=== PATIENT | male | born 1970 | race Caucasian/White ===

== ENCOUNTER → 2016-09-23 | Outpatient (CLI) | payer OTHER, MEDICAID | END | disposition home or self-care (01) | LOC: RD 09:25 | DX: Z00.00 Encounter for general adult medical examination without abnormal findings (principal) ==

== ENCOUNTER 2017-09-01 11:21 | Inpatient (IN) | payer OTHER, MEDICAID ==
[~2017-09-01] VITALS: Ht 160 cm; Wt 61.1 kg
[2017-09-01 12:39] LABS: BASOPHIL % 0.1 % (0-2); PLATELET COUNT 252 x10^3mcL (130-400); RED CELL DISTRIBUTION WIDTH 13.6 % (11.5-14.5)
[2017-09-01 13:06] LABS: CALCIUM 8.4 mg/dL (8.5-10.1); CARBON DIOXIDE 28.6 mmol/L (21-32); CHLORIDE SERUM 98 mmol/L (98-107); CREATININE SERUM 0.8 mg/dL (0.7-1.3); GFR1 > 60 mL/min; GLUCOSE SERUM 120 mg/dL (74-106); POTASSIUM SERUM 3.2 mmol/L (3.5-5.1); SODIUM SERUM 139 mmol/L (136-145)
[2017-09-01 13:10] LABS: ALKALINE PHOSPHATASE 80 U/L (46-116); ALT/SGPT 45 U/L (16-63); AST/SGOT 50 U/L (15-37); BILIRUBIN TOTAL 0.85 mg/dL (0.20-1.00); LIPASE 78 IU/L (73-393); TOTAL PROTEIN, SERUM 6.7 g/dL (6.4-8.2)
[2017-09-01 13:12] LABS: ALBUMIN 2.4 g/dL (3.4-5.0)
[2017-09-01] MEDS ORDERED: CLARITIN10 MG PO (13:24)
[2017-09-01] MEDS ORDERED: BENZTROPINE ME0.5 MG PO (13:24)
[2017-09-01] MEDS ORDERED: DEPAKOTE ER500 MG PO ×2 (13:25)
[2017-09-01] MEDS ORDERED: LACTULOSE10 GM/152 PO (13:26)
[2017-09-01] MEDS ORDERED: COLACE100 MG (13:27)
[2017-09-01] MEDS ORDERED: PAROXETINE HCL40 M1 PO (13:27)
[2017-09-01] MEDS ORDERED: ACE (13:28)
[2017-09-01] MEDS ORDERED: APAP500 MG PO (13:29)
[2017-09-01] MEDS ORDERED: MOM PO (13:31)
[2017-09-01 14:30] LABS: UA SPECIFIC GRAVITY >=1.030 (1.005-1.035); microscopic required? YES; urine erythrocyte TRACE (NEGATIVE)
[2017-09-01 14:47] LABS: T3 TOTAL 0.68 ng/mL
[2017-09-01 15:01] LABS: MAGNESIUM 2.2 mg/dL (1.8-2.4); PHOSPHOROUS 4.2 mg/dL (2.5-4.9)
[2017-09-01 15:06] VITALS: BP 126/91
[2017-09-01 15:26] VITALS: Ht 160 cm; Wt 61.1 kg
[2017-09-01 15:31] LABS: AMPHETAMINE QUAL UR NONE DETECTED (NEG <=1000)
[2017-09-01 15:47] LABS: FREE T4 1.42 ng/dL (0.76-1.46); FREE THYROXINE INDEX 2.9 ug/dL (1.4-4.5); T4(THYROXINE) 7.9 ug/dL (4.7-13.3)
[2017-09-01 20:22] VITALS: BP 126/88
[2017-09-01 20:44] VITALS: BP 123/88
[2017-09-01 21:19] VITALS: BP 128/80
[2017-09-01 22:36] VITALS: BP 131/80
[2017-09-02] VITALS (10 sets, daily range): BP systolic 92–131; BP diastolic 56–81
[2017-09-02 06:16] LABS: BASOPHIL % 0.2 % (0-2); PLATELET COUNT 219 x10^3mcL (130-400); RED CELL DISTRIBUTION WIDTH 13.8 % (11.5-14.5)
[2017-09-02 06:30] LABS: CALCIUM 7.7 mg/dL (8.5-10.1); CARBON DIOXIDE 27.3 mmol/L (21-32); CHLORIDE SERUM 104 mmol/L (98-107); CREATININE SERUM 0.6 mg/dL (0.7-1.3); GFR1 > 60 mL/min; GLUCOSE SERUM 82 mg/dL (74-106); MAGNESIUM 2.1 mg/dL (1.8-2.4); PHOSPHOROUS 2.9 mg/dL (2.5-4.9); POTASSIUM SERUM 3.5 mmol/L (3.5-5.1); SODIUM SERUM 140 mmol/L (136-145); TRIGLYCERIDES 48 mg/dL (<150)
[2017-09-02 06:50] LABS: CHOLESTEROL 82 mg/dL (<200); CHOLESTEROL/HDL RATIO 2.7; HDL CHOLESTEROL 30 mg/dL (40-60)
[2017-09-03] VITALS (17 sets, daily range): BP systolic 92–151; BP diastolic 46–573
[2017-09-03 04:36] LABS: BASOPHIL % 0.2 % (0-2); PLATELET COUNT 239 x10^3mcL (130-400); RED CELL DISTRIBUTION WIDTH 14.2 % (11.5-14.5)
[2017-09-03 04:45] LABS: CALCIUM 7.2 mg/dL (8.5-10.1); CARBON DIOXIDE 28.1 mmol/L (21-32); CHLORIDE SERUM 108 mmol/L (98-107); CREATININE SERUM 0.7 mg/dL (0.7-1.3); GFR1 > 60 mL/min; GLUCOSE SERUM 194 mg/dL (74-106); PHOSPHOROUS 2.9 mg/dL (2.5-4.9); POTASSIUM SERUM 4.3 mmol/L (3.5-5.1); SODIUM SERUM 140 mmol/L (136-145)
[2017-09-04] VITALS (10 sets, daily range): BP systolic 91–124; BP diastolic 55–83
[2017-09-04 05:31] LABS: PLATELET COUNT 235 x10^3mcL (130-400); RED CELL DISTRIBUTION WIDTH 14.1 % (11.5-14.5)
[2017-09-04 05:45] LABS: CALCIUM 7.3 mg/dL (8.5-10.1); CARBON DIOXIDE 35.4 mmol/L (21-32); CHLORIDE SERUM 107 mmol/L (98-107); CREATININE SERUM 0.4 mg/dL (0.7-1.3); GFR1 > 60 mL/min; GLUCOSE SERUM 120 mg/dL (74-106); PHOSPHOROUS 2.9 mg/dL (2.5-4.9); POTASSIUM SERUM 3.9 mmol/L (3.5-5.1); SODIUM SERUM 142 mmol/L (136-145)
[2017-09-04 05:46] LABS: BAND NEUTROPHIL 4 % (0-10); METAMYELOCTE 1 % (0-2); MONOCYTE 9 % (0-7); MYELOCYTE 1 % (0-2); SEGMENTED NEUTROPHILS 72 % (37-75)
[2017-09-04 05:47] LABS: PLATELET MORPHOLOGY PLATELETS NORMAL
[2017-09-04 05:48] LABS: rbc morphology (normal/abnorm) NORMAL (NORMAL)
[2017-09-05 03:42] VITALS: BP 100/55
[2017-09-05 05:20] LABS: BASOPHIL % 0.4 % (0-2); PLATELET COUNT 236 x10^3mcL (130-400); RED CELL DISTRIBUTION WIDTH 14.1 % (11.5-14.5)
[2017-09-05 05:35] LABS: CALCIUM 7.3 mg/dL (8.5-10.1); CARBON DIOXIDE 32.9 mmol/L (21-32); CHLORIDE SERUM 106 mmol/L (98-107); CREATININE SERUM 0.4 mg/dL (0.7-1.3); GFR1 > 60 mL/min; GLUCOSE SERUM 109 mg/dL (74-106); MAGNESIUM 2.1 mg/dL (1.8-2.4); POTASSIUM SERUM 3.7 mmol/L (3.5-5.1); SODIUM SERUM 143 mmol/L (136-145)
[2017-09-05 08:30] VITALS: BP 112/51
[2017-09-05 12:35] VITALS: BP 106/56
[2017-09-05 19:35] VITALS: BP 112/67
[2017-09-05 20:56] VITALS: BP 112/67
[2017-09-06 05:35] VITALS: BP 115/61
[2017-09-06 07:43] LABS: BASOPHIL % 0.2 % (0-2); PLATELET COUNT 277 x10^3mcL (130-400)
[2017-09-06 07:50] LABS: CALCIUM 7.2 mg/dL (8.5-10.1); CARBON DIOXIDE 29.1 mmol/L (21-32); CHLORIDE SERUM 106 mmol/L (98-107); CREATININE SERUM 0.4 mg/dL (0.7-1.3); GFR1 > 60 mL/min; GLUCOSE SERUM 112 mg/dL (74-106); PHOSPHOROUS 3.9 mg/dL (2.5-4.9); POTASSIUM SERUM 4.1 mmol/L (3.5-5.1); SODIUM SERUM 139 mmol/L (136-145)
[2017-09-06 10:27] VITALS: BP 107/64
[2017-09-06 13:45] VITALS: BP 115/65
[2017-09-06 20:28] VITALS: BP 106/65
[2017-09-07 04:48] VITALS: BP 104/57
[2017-09-07 07:00] LABS: BASOPHIL % 0.3 % (0-2); PLATELET COUNT 286 x10^3mcL (130-400); RED CELL DISTRIBUTION WIDTH 13.9 % (11.5-14.5)
[2017-09-07 07:06] LABS: CALCIUM 7.2 mg/dL (8.5-10.1); CHLORIDE SERUM 101 mmol/L (98-107); CREATININE SERUM 0.4 mg/dL (0.7-1.3); GFR1 > 60 mL/min; GLUCOSE SERUM 217 mg/dL (74-106); PHOSPHOROUS 4.2 mg/dL (2.5-4.9); POTASSIUM SERUM 4.2 mmol/L (3.5-5.1); SODIUM SERUM 133 mmol/L (136-145)
[2017-09-07 09:45] VITALS: BP 106/67
[2017-09-07 14:50] VITALS: BP 130/79
[2017-09-07 19:44] VITALS: BP 125/90
[2017-09-07 23:36] VITALS: BP 132/81
[2017-09-08 01:08] LABS: BASOPHIL % 0.2 % (0-2); PLATELET COUNT 394 x10^3mcL (130-400); RED CELL DISTRIBUTION WIDTH 13.5 % (11.5-14.5)
[2017-09-08 03:54] VITALS: BP 105/73
[2017-09-08 05:49] LABS: BASOPHIL % 0.2 % (0-2); PLATELET COUNT 396 x10^3mcL (130-400); RED CELL DISTRIBUTION WIDTH 14.1 % (11.5-14.5)
[2017-09-08 05:51] LABS: CARBON DIOXIDE 28.1 mmol/L (21-32); CHLORIDE SERUM 104 mmol/L (98-107); CREATININE SERUM 0.4 mg/dL (0.7-1.3); GFR1 > 60 mL/min; GLUCOSE SERUM 148 mg/dL (74-106); POTASSIUM SERUM 3.7 mmol/L (3.5-5.1); SODIUM SERUM 136 mmol/L (136-145)
[2017-09-08 05:52] LABS: CALCIUM 7.1 mg/dL (8.5-10.1); MAGNESIUM 1.8 mg/dL (1.8-2.4); PHOSPHOROUS 3.7 mg/dL (2.5-4.9)
[2017-09-08 08:00] VITALS: BP 107/71
[2017-09-08 11:42] VITALS: BP 117/71
[2017-09-08 15:23] VITALS: BP 118/77
[2017-09-08 19:45] VITALS: BP 115/69
[2017-09-08 23:59] VITALS: BP 120/71
[2017-09-09 05:22] VITALS: BP 122/68
[2017-09-09 06:54] LABS: BASOPHIL % 0.3 % (0-2); PLATELET COUNT 375 x10^3mcL (130-400); RED CELL DISTRIBUTION WIDTH 13.8 % (11.5-14.5)
[2017-09-09 07:11] LABS: CALCIUM 7.3 mg/dL (8.5-10.1); CARBON DIOXIDE 26.2 mmol/L (21-32); CHLORIDE SERUM 102 mmol/L (98-107); CREATININE SERUM 0.4 mg/dL (0.7-1.3); GFR1 > 60 mL/min; GLUCOSE SERUM 108 mg/dL (74-106); MAGNESIUM 1.8 mg/dL (1.8-2.4); PHOSPHOROUS 2.9 mg/dL (2.5-4.9); POTASSIUM SERUM 4.2 mmol/L (3.5-5.1); SODIUM SERUM 133 mmol/L (136-145)
[2017-09-09 09:23] VITALS: BP 101/57
[2017-09-09 12:58] VITALS: BP 112/69
[2017-09-09 19:00] VITALS: BP 124/72
[2017-09-09 21:30] VITALS: BP 99/74
[2017-09-10 05:34] VITALS: BP 141/77
[2017-09-10 06:57] LABS: BASOPHIL % 0.7 % (0-2); PLATELET COUNT 399 x10^3mcL (130-400); RED CELL DISTRIBUTION WIDTH 14.2 % (11.5-14.5)
[2017-09-10 07:10] LABS: CALCIUM 7.4 mg/dL (8.5-10.1); CARBON DIOXIDE 28.2 mmol/L (21-32); CHLORIDE SERUM 102 mmol/L (98-107); CREATININE SERUM 0.4 mg/dL (0.7-1.3); GFR1 > 60 mL/min; GLUCOSE SERUM 139 mg/dL (74-106); MAGNESIUM 1.9 mg/dL (1.8-2.4); PHOSPHOROUS 3.9 mg/dL (2.5-4.9); POTASSIUM SERUM 4.2 mmol/L (3.5-5.1); SODIUM SERUM 136 mmol/L (136-145)
[2017-09-10 09:55] VITALS: BP 116/73
[2017-09-10 12:23] VITALS: BP 102/67
[2017-09-10 17:25] VITALS: BP 123/83
[2017-09-10 20:01] VITALS: BP 110/73
[2017-09-11 05:41] VITALS: BP 108/72
[2017-09-11 07:10] LABS: CALCIUM 7.4 mg/dL (8.5-10.1); CARBON DIOXIDE 26.4 mmol/L (21-32); CHLORIDE SERUM 102 mmol/L (98-107); CREATININE SERUM 0.4 mg/dL (0.7-1.3); GFR1 > 60 mL/min; GLUCOSE SERUM 94 mg/dL (74-106); MAGNESIUM 1.9 mg/dL (1.8-2.4); PHOSPHOROUS 3.6 mg/dL (2.5-4.9); POTASSIUM SERUM 4.2 mmol/L (3.5-5.1); SODIUM SERUM 136 mmol/L (136-145)
[2017-09-11 07:33] LABS: BASOPHIL % 0.2 % (0-2); PLATELET COUNT 421 x10^3mcL (130-400)
[2017-09-11 09:35] VITALS: BP 124/74
[2017-09-11 12:53] VITALS: BP 111/76
[2017-09-11 16:47] VITALS: BP 103/61
[2017-09-11 19:30] VITALS: BP 102/62
[2017-09-12] VITALS (7 sets, daily range): BP systolic 91–158; BP diastolic 60–81
[2017-09-12 06:51] LABS: CALCIUM 7.4 mg/dL (8.5-10.1); CARBON DIOXIDE 23.4 mmol/L (21-32); CHLORIDE SERUM 102 mmol/L (98-107); CREATININE SERUM 0.5 mg/dL (0.7-1.3); GFR1 > 60 mL/min; GLUCOSE SERUM 95 mg/dL (74-106); MAGNESIUM 1.8 mg/dL (1.8-2.4); PHOSPHOROUS 3.6 mg/dL (2.5-4.9); POTASSIUM SERUM 3.9 mmol/L (3.5-5.1); SODIUM SERUM 134 mmol/L (136-145)
[2017-09-12 06:58] LABS: BASOPHIL % 0.2 % (0-2); RED CELL DISTRIBUTION WIDTH 14.1 % (11.5-14.5)
[2017-09-12 07:18] LABS: PLATELET COUNT 411 x10^3mcL (130-400)
[2017-09-13 06:09] VITALS: BP 118/75
[2017-09-13 06:41] LABS: BASOPHIL % 0.8 % (0-2); RED CELL DISTRIBUTION WIDTH 14.1 % (11.5-14.5)
[2017-09-13 06:53] LABS: CALCIUM 7.4 mg/dL (8.5-10.1); CARBON DIOXIDE 24.9 mmol/L (21-32); CHLORIDE SERUM 100 mmol/L (98-107); CREATININE SERUM 0.4 mg/dL (0.7-1.3); GFR1 > 60 mL/min; GLUCOSE SERUM 91 mg/dL (74-106); POTASSIUM SERUM 3.7 mmol/L (3.5-5.1); SODIUM SERUM 133 mmol/L (136-145)
[2017-09-13 06:59] LABS: PLATELET COUNT 415 x10^3mcL (130-400)
[2017-09-13 09:44] VITALS: BP 106/75
[2017-09-13 13:42] VITALS: BP 117/74
[2017-09-13 16:31] VITALS: BP 132/75
[2017-09-13 20:26] VITALS: BP 114/72
[2017-09-14 06:10] LABS: BASOPHIL % 0.2 % (0-2); RED CELL DISTRIBUTION WIDTH 14.2 % (11.5-14.5)
[2017-09-14 06:17] VITALS: BP 110/73
[2017-09-14 06:30] LABS: CALCIUM 7.7 mg/dL (8.5-10.1); CARBON DIOXIDE 27.5 mmol/L (21-32); CHLORIDE SERUM 103 mmol/L (98-107); CREATININE SERUM 0.4 mg/dL (0.7-1.3); GFR1 > 60 mL/min; GLUCOSE SERUM 87 mg/dL (74-106); POTASSIUM SERUM 3.7 mmol/L (3.5-5.1); SODIUM SERUM 137 mmol/L (136-145)
[2017-09-14 06:59] LABS: PLATELET COUNT 431 x10^3mcL (130-400)
[2017-09-14 08:00] VITALS: BP 107/63
[2017-09-14 13:38] VITALS: BP 109/68
[2017-09-14 17:01] VITALS: BP 112/71
[2017-09-14 20:46] VITALS: BP 112/71
[2017-09-14 21:10] VITALS: BP 98/60
[2017-09-15 05:41] VITALS: BP 108/65
[2017-09-15 06:47] LABS: CALCIUM 7.7 mg/dL (8.5-10.1); CARBON DIOXIDE 26.8 mmol/L (21-32); CHLORIDE SERUM 103 mmol/L (98-107); CREATININE SERUM 0.4 mg/dL (0.7-1.3); GFR1 > 60 mL/min; GLUCOSE SERUM 104 mg/dL (74-106); PHOSPHOROUS 3.4 mg/dL (2.5-4.9); SODIUM SERUM 135 mmol/L (136-145)
[2017-09-15 06:56] LABS: BASOPHIL % 0.6 % (0-2); PLATELET COUNT 388 x10^3mcL (130-400); RED CELL DISTRIBUTION WIDTH 13.5 % (11.5-14.5)
[2017-09-15 09:16] VITALS: BP 101/61
[2017-09-15 14:24] VITALS: BP 125/79
[2017-09-15 17:36] VITALS: BP 124/80
[2017-09-15 22:34] VITALS: BP 119/71
[2017-09-16 05:24] VITALS: BP 116/70
[2017-09-16 06:31] LABS: CALCIUM 7.5 mg/dL (8.5-10.1); CARBON DIOXIDE 26.5 mmol/L (21-32); CHLORIDE SERUM 104 mmol/L (98-107); CREATININE SERUM 0.4 mg/dL (0.7-1.3); GFR1 > 60 mL/min; GLUCOSE SERUM 85 mg/dL (74-106); MAGNESIUM 1.9 mg/dL (1.8-2.4); PHOSPHOROUS 3.5 mg/dL (2.5-4.9); POTASSIUM SERUM 3.7 mmol/L (3.5-5.1); SODIUM SERUM 135 mmol/L (136-145)
[2017-09-16 06:44] LABS: IRON 21 ug/dL (65-170); TOTAL IRON BINDING CAPACITY 129 ug/dL (250-450)
[2017-09-16 08:07] LABS: BASOPHIL % 0.5 % (0-2); PLATELET COUNT 490 x10^3mcL (130-400); RED BLOOD CELLS 2.63 M/mm3 (4.52-5.90); RED CELL DISTRIBUTION WIDTH 14.1 % (11.5-14.5)
[2017-09-16 09:55] VITALS: BP 129/87
[2017-09-16 13:30] VITALS: BP 125/74
[2017-09-16 17:11] VITALS: BP 125/74
[2017-09-16 17:25] VITALS: BP 111/73
== END 2017-09-16 19:45 | DRG 326 ==
LOC: ED 11:21 → IC 12:41 → MU 12:41 → DU 12:41 → IC 09-02 10:33 → DU 09-05 15:52 → MU 09-06 11:05 → IC 09-07 19:11 → DU 09-08 23:38
PROVIDERS: Emergency Medicine; Family Medicine; Student in an Organized Health Care Education/Training Program; Surgery
PROC: 0DC Gastrointestinal System, Extirpation (ICD-10-PCS; 2017-09-01)
PROC: 0DTF0ZZ Resection of Right Large Intestine, Open Approach (ICD-10-PCS; 2017-09-02)
PROC: 0DC80ZZ Extirpation of Matter from Small Intestine, Open Approach (ICD-10-PCS; 2017-09-02)
PROC: 0DTP0ZZ Resection of Rectum, Open Approach (ICD-10-PCS; 2017-09-02)
PROC: 0DTN0ZZ Resection of Sigmoid Colon, Open Approach (ICD-10-PCS; 2017-09-02)
PROC: 0D1A0Z4 Bypass Jejunum to Cutaneous, Open Approach (ICD-10-PCS; 2017-09-02)
PROC: B543ZZA Ultrasonography of Right Jugular Veins, Guidance (ICD-10-PCS; 2017-09-03)
PROC: 05HM33Z Insertion of Infusion Device into Right Internal Jugular Vein, Percutaneous Approach (ICD-10-PCS; 2017-09-03)
PROC: 0DBB0ZZ Excision of Ileum, Open Approach (ICD-10-PCS; 2017-09-07)
PROC: 0D1B0Z4 Bypass Ileum to Cutaneous, Open Approach (ICD-10-PCS; 2017-09-07)
PROC: 0DH60UZ Insertion of Feeding Device into Stomach, Open Approach (ICD-10-PCS; principal; 2017-09-07 15:30)
DX: K56.2 Volvulus (principal); E43 Unspecified severe protein-calorie malnutrition; N17.0 Acute kidney failure with tubular necrosis; J96.01 Acute respiratory failure with hypoxia; K59.2 Neurogenic bowel, not elsewhere classified; I47.1 Supraventricular tachycardia; E87.1 Hypo-osmolality and hyponatremia; D68.8 Other specified coagulation defects; J98.11 Atelectasis; K59.39 Other megacolon; Q43.8 Other specified congenital malformations of intestine; R64 Cachexia; G80.9 Cerebral palsy, unspecified; K56.41 Fecal impaction; K56.0 Paralytic ileus; K21.9 Gastro-esophageal reflux disease without esophagitis; E87.6 Hypokalemia; F79 Unspecified intellectual disabilities; D64.9 Anemia, unspecified; I10 Essential (primary) hypertension; E86.0 Dehydration; R80.9 Proteinuria, unspecified; F43.0 Acute stress reaction; D72.829 Elevated white blood cell count, unspecified; R74.0 Nonspecific elevation of levels of transaminase and lactic acid dehydrogenase [LDH]; Z68.23 Body mass index [BMI] 23.0-23.9, adult; E87.8 Other disorders of electrolyte and fluid balance, not elsewhere classified
CPT/HCPCS: 36600; 82962; 83880; 84439; 94150; 97110-GP; 97116-GP; 97164; 97530-GP; C9113; J0330; J0610; J0690; J0696; J1170; J1200; J1642; J1644; J1815; J1885; J1940; J2250; J2270; J2405; J2704; J2710; J2765; J2916; J3010; J3475; J3480; J3490; J7030; J7042; J7050; J7120; J7131; J8597; P9016; Q0092; Q9967